=== PATIENT | male | born 1960 | race African-American/Black ===

== ENCOUNTER 2020-12-09 12:24 | Emergency (ER) | payer MEDICAID ==
[~2020-12-09] VITALS: Ht 182.9 cm; Wt 62.6 kg
[2020-12-09 12:42] LABS: BASOPHILS % (AUTO) 0.6 % (0.0-2.0); HEMATOCRIT 39 % (39-51); HEMOGLOBIN 12.7 g/dL (13.5-17.5); LYMPHOCYTES # (AUTO) 1.4 /CMM (0.8-4.8); MEAN CORPUSCULAR HGB CONC 33 g/dl (31.0-36.0); MEAN CORPUSCULAR VOLUME 103 fL (80-96); MONOCYTES # (AUTO) 0.6 /CMM (0.1-1.30); MONOCYTES % (AUTO) 15.5 % (2.0-12.0); NEUTROPHILS # (AUTO) 1.7 /CMM (1.8-8.9); NEUTROPHILS % (AUTO) 43.9 % (43.0-81.0); PLATELET COUNT (AUTO) 174 /CMM (150-450); RED BLOOD CELL COUNT(AUTO) 3.76 MIL/uL (4.5-6.0); WHITE BLOOD COUNT (AUTO) 3.9 K/uL (4.3-11.0)
--- NOTE | 2020-12-09 12:42 | NUR ---
Patient awake alert c/C chest pain and back pain MD aware moved to room 11 hooked in the monitor ,gown ,Ekg ,lab drawn obtainedand send to lab .
[2020-12-09 12:56] LABS: CALCIUM, SERUM 8.1 mg/dL (8.5-10.1); CARBON DIOXIDE 22 mmol/L (21-32); CHLORIDE 105 mmol/L (98-107); CREATININE 0.9 mg/dL (0.6-1.3); GLUCOSE 87 mg/dL (74-106); POTASSIUM 3.9 mmol/L (3.5-5.1); SODIUM SERUM 142 mmol/L (136-145); UREA NITROGEN, BLOOD 11 mg/dL (7-18)
[2020-12-09 13:09] LABS: ALANINE AMINOTRANSFERASE 122 U/L (12-78); ALBUMIN 3.5 g/dL (3.4-5.0); ALKALINE PHOSPHATASE 70 U/L (46-116); ASPARTATE AMINOTRANSFERASE 151 U/L (15-37); BILIRUBIN,DIRECT 0.4 mg/dL (0.0-0.2); BILIRUBIN,TOTAL 0.6 mg/dL (0.2-1.0); NT-PRO BNP 48 PG/ML (0-125); TOTAL PROTEIN, SERUM 7.2 g/dL (6.4-8.2)
[2020-12-09 13:31] LABS: EOSINOPHILS % (MANUAL) 5 % (0-4); LYMPHOCYTES % (MANUAL) 36 % (16-48); MONOCYTES % (MANUAL) 17 % (0-11.0); NEUTROPHILS % (MANUAL) 42 (42-76)
--- NOTE | 2020-12-09 13:48 | NUR ---
Patient Dc home instruction given agrees to see PMd in AM patient able to ambulated without difficulties .
--- NOTE | 2020-12-09 13:49 | NUR ---
Removed saline lock RAC noted cath intact no edema no pain .
[2020-12-09 13:51] VITALS: BP 123/56
== END 2020-12-09 14:08 | disposition home or self-care (01) ==
LOC: ER 12:27
DX: R07.89 Other chest pain (principal); I10 Essential (primary) hypertension; Z60.2 Problems related to living alone
CPT/HCPCS: 36415; 71045-TC; 80048-TC; 80076-TC; 83690-TC; 83880; 84484-TC; 85025-TC; 85730-TC